=== PATIENT | female | born 1980 | race Caucasian/White ===

== ENCOUNTER 2019-08-13 15:05 | Emergency (ER) | payer MEDICAID ==
[~2019-08-13] VITALS: Ht 162.6 cm; Wt 108.9 kg
[2019-08-13 15:10] VITALS: BP_SYST 109
--- NOTE | 2019-08-13 15:15 | NUR ---
Patient triaged and placed in waiting room. VSS and patient appears in no acute distress at this time. Accompanied by SELF, awaiting available bed, and MD notified of need for MSE.
--- NOTE | 2019-08-13 15:45 | NUR ---
BROUGHT BACK TO BED #4 VIA WHEELCHAIR, REPORT GIVEN TO KATHARINE
--- NOTE | 2019-08-13 15:51 | NUR ---
Patient arrived via POV, AAOX4, and ambulatory with hunched gait. Patient came from urgent care, referred for r/o ruptured appy. Patient having pain to RLQ. Associated symptoms of fever, nausea, and vomiting. Patient states pain began 3 days ago and as a sharp pain, now the pain has an area of approximately 8" council in RLQ. Patient was seen at urgent care and ultrasound was performed. Upon reading, she was told that her appendix ruptured. Will continue to follow up and monitor.
--- NOTE | 2019-08-13 16:15 | NUR ---
ER at bedside examining patient.
[2019-08-13] MEDS ORDERED: NACL 0.9% 1,000 ML IV ONE (16:17)
[2019-08-13] MEDS ORDERED: MORPHINE 4 MG/ML INJ. SYRINGE IVP ONE (16:30)
[2019-08-13 16:43] LABS: BILIRUBIN,URINE NEGATIVE (NEGATIVE); BLOOD, URINE NEGATIVE (NEGATIVE); COLOR,URINE YELLOW (YELLOW); GLUCOSE,URINE NEGATIVE (NEGATIVE); KETONES,URINE NEGATIVE (NEGATIVE); LEUKOCYTE ESTERASE ,URINE NEGATIVE (NEGATIVE); NITRITE, URINE NEGATIVE (NEGATIVE); PH,URINE 7.5 (5.0-8.0); PROTEIN URINE NEGATIVE (NEGATIVE); UROBILINOGEN,URINE 0.2 (0.2-1.0)
--- NOTE | 2019-08-13 17:01 | NUR ---
# 24 gauge angiocath placed to left lower leg. Use of asceptic technique. Opsite placed over site. Blood return noted. Flushed with 10 cc of normal saline. No evidence of infiltration noted. Patient tolerated well. Placed after 10 attempts.
--- NOTE | 2019-08-13 17:05 | NUR ---
Patient was given IV morphine for pain. Upon IV push, patient began having redness and itching at the site. Orders recieved for IVP Benadryl.
[2019-08-13 17:08] LABS: CLARITY/URINE SLIGHTLY HAZY (CLEAR)
[2019-08-13] MEDS ORDERED: DIPHENHYDRAMINE INJ 50 MG/ML VIAL ONE (17:20)
[2019-08-13] MEDS ORDERED: ONDANSETRON HCL 4 MG/2 ML VIAL IVP ONE (17:45)
--- NOTE | 2019-08-13 17:55 | NUR ---
Patient arrived back from CT scan stating her pain has not gotten better, and she is feeling increasingly nauseous. MD made aware. Will follow up regarding orders.
[2019-08-13 18:19] VITALS: BP_SYST 107
--- NOTE | 2019-08-13 18:19 | NUR ---
Patient given written and verbal discharge instructions and verbalizes understanding. ER MD discussed with patient the results and treatment provided. Patient in stable condition. ID arm band removed. IV catheter removed intact and dressing applied, no active bleeding. Rx of Naprosyn given. Patient educated on pain management and to follow up with PMD. Pain Scale 7/10, MD aware. Opportunity for questions provided and answered. Medication side effect fact sheet provided.
[2019-08-13] MEDS ORDERED: DIPHENHYDRAMINE INJ 50 MG/ML VIAL IVP ONE (18:45)
== END 2019-08-13 18:19 | disposition home or self-care (01) ==
LOC: SED 15:05
DX: K30 Functional dyspepsia (principal); Z88.6 Allergy status to analgesic agent; Z88.8 Allergy status to other drugs, medicaments and biological substances
CPT/HCPCS: 74176; 81003; 96374; 96375; 99284; J1200; J2270; J2405; J7030